=== PATIENT | male | born 1960 | race Caucasian/White ===

== ENCOUNTER → 2023-08-03 10:12 | Outpatient (REF) | payer OTHER, SELFPAY | LOC: RAD 10:12 | PROVIDERS: ATTENDING PHYSICIAN Family Medicine | DX: M10.9 Gout, unspecified (principal) | CPT/HCPCS: 73630 ==

== ENCOUNTER → 2024-05-12 06:29 | Day surgery (SDC) | payer OTHER, SELFPAY | LOC: GI 06:29 | PROVIDERS: ATTENDING PHYSICIAN Internal Medicine | DX: Z12.11 Encounter for screening for malignant neoplasm of colon (principal); K64.9 Unspecified hemorrhoids; Z83.719 Family history of colon polyps, unspecified | CPT/HCPCS: G0105 ==